=== PATIENT | male | born 1975 | race Caucasian/White ===

== ENCOUNTER 2017-06-13 03:50 | Emergency (ER) | payer BC, OTHER ==
[2017-06-13] MEDS ORDERED: FEVERALL 650 MG PR ONE (03:53)
[2017-06-13] MEDS ORDERED: XYLOCAINE 2% HCL 20 ML MDV ONE ×2 (04:11→04:13)
--- NOTE | 2017-06-13 04:17 | ERPHSYRPT ---
- History of Present Illness Time Seen by Provider: 06/13/17 04:09 Source: patient Physician History: PATIENT SUSTAINED CRUSH INJURY AT WORK, MIDDLE FINGER CAUGHT BETWEEN 2 PIECES OF METAL. HAS PAINFUL LACERATION OVER END OF FINGER. HAS LIMITED RANGE OF MOTION OVER END OF FINGER. Occurred: just prior to arrival Method of Injury: other (CRUSH INJURY BETWEEN 2 PIECES OF METAL) Quality: constant Severity of Pain-Max: moderate Severity of Pain-Current: moderate Extremities Pain Location: 3rd finger: left Modifying Factors: Improves With: movement Associated Symptoms: none Allergies/Adverse Reactions: Penicillins Allergy (Severe, Verified 06/13/17 04:16) Hives Home Medications: Tramadol HCl 50 mg [Ultram 50 mg] 50 mg PO Q6H PRN PRN 06/13/17 [History] Hx Tetanus, Diphtheria Vaccination/Date Given: No - Review of Systems Musculoskeletal: Deformity, Injury, Joint Pain - Past Medical History Pertinent Past Medical History: Yes Neurological History: No Pertinent History ENT History: No Pertinent History Cardiac History: No Pertinent History Respiratory History: No Pertinent History Endocrine Medical History: No Pertinent History Musculoskeletal History: Fractures GI Medical History: Hernia, Polyps History: No Pertinent History Psycho-Social History: No Pertinent History Male Reproductive Disorders: No Pertinent History Other Medical History: C-SPINE FX, KNEE INJURIES - Past Surgical History Past Surgical History: Yes Neuro Surgical History: No Pertinent History Cardiac: No Pertinent History Respiratory: No Pertinent History Gastrointestinal: Appendectomy, Hernia Repair Genitourinary: No Pertinent History Musculoskeletal: Orthopedic Surgery Male Surgical History: No Pertinent History Other Surgical History: left leg surgery - Social History Smoking Status: Former smoker Exposure to second hand smoke: No Drug Use: none - Nursing Vital Signs Nursing Vital Signs: Initial Vital Signs Temperature 97.9 F 06/13/17 03:57 Pulse Rate 60 06/13/17 03:57 Respiratory Rate 18 06/13/17 03:57 Blood Pressure 150/95 06/13/17 03:57 O2 Sat by Pulse Oximetry 95 06/13/17 03:57 Pain Scale Pain Intensity 8 - Physical Exam General Appearance: alert Hand Exam: laceration (THERE IS AN L-SHAPED LACERATION 2.5CM DORSUM LEFT MIDDLE FINGER, DISTAL PHALANGX ADJACENT TO NAIL FOLD RADIAL ANTERIOR ASPECT WITH AN AVULSION PROXIMAL TO ANTERIORN NAIL FOLD, DISTAL PHALANGX VISUALIZED, ABSENT EXTENSION DIP JOINT, NO JOINT LAXITY MCP, PIP, DIP JOINT) Mental Status Exam: alert, oriented x 3 Procedures - Laceration/Wound Repair Left Finger Wound Location: Left (MIDDLE FINGER) Wound Length (cm): 2.3 Wound's Depth, Shape: irregular, flap (L-SHAPED FLAP) Wound Explored: clean Irrigated: Yes Hibiclens Prep: Yes Anesthesia: digital block, 2% Lidocaine Volume Anesthetic (ccs): 4 Wound Debrided: minimal Wound Repaired With: sutures Suture Size/Type: 4-0 Number of Sutures: 10 Sterile Dressing Applied?: Yes Splint Applied?: Yes - Radiology Exams Left Hand X-ray Interpretation: Interpreted by me (COMMINUTED DISPLACED TUFF FRACTURE, OF LEFT MIDDLE FINGER) Ordered Tests: Active Orders 24 hr Category Date Time Status HAND (MINIMUM 3 VIEWS) Stat Exams 06/13/17 04:14 Ordered Medication Summary Discontinued Medications Generic Name Dose Route Start Last Admin Trade Name Freq PRN Reason Stop Dose Admin Acetaminophen 650 mg 06/13/17 03:53 Feverall 650 Mg MO 06/13/17 03:54 STAT ONE Bacitracin Confirm 06/13/17 05:00 Baciguent Packet Administered 06/13/17 05:01 Dose 1 gm .ROUTE .STK-MED ONE Diphtheria/Tetanus/Acell Pertussis Confirm 06/13/17 05:00 Adacel Vial Administered 06/13/17 05:01 Dose 0.5 ml IM .STK-MED ONE Lidocaine HCl Confirm 06/13/17 04:11 Xylocaine 2% Hcl 20 Ml Mdv Administered 06/13/17 04:12 Dose 1 ml .ROUTE .STK-MED ONE Lidocaine HCl Confirm 06/13/17 04:13 Xylocaine 2% Hcl 20 Ml Mdv Administered 06/13/17 04:14 Dose 4 ml .ROUTE .STK-MED ONE - Progress Progress Note: 06/13/17 05:27 KEFLEX 500MG ORALLY, T-DAP 0.5ML IM Discussed with : Other (DISCUSSED WITH DR WOLF AT 05 WILL EVALUATE IN OFFICE TODAY AT 8AM) - Departure Time of Disposition: 05:35 Departure Disposition: Home Clinical Impression: COMMINUTED FRACTURE LEFT MIDDLE FINGER, LACERATION LEFT MIDDLE FINGER Condition: Stable Critical Care Time: No Referrals: FERMIN JACOBS [Primary Care Provider] - Additional Instructions: CALL DR WOLF TODAY AT 8AM FOR OFFICE VISIT THIS MORNING. ANTIBIOTIC KEFLEX 500MG EVERY 6 HOURS FOR 10 DAYS. NORCO 10/325 EVERY 4 HOURS FOR PAIN DISCOMFORT. MAINTAIN TUBE DEMETRIUS DRESSINGS WITH SPLINT UNTIL EVALUATED BY DR WOLF.
[2017-06-13] MEDS ORDERED: BACIGUENT PACKET ONE (05:00)
[2017-06-13] MEDS ORDERED: Adacel Vial IM ONE (05:00)
[2017-06-13] MEDS ORDERED: Norco 10/325 MG Tablet PO ONE (05:30)
[2017-06-13] MEDS ORDERED: KEFLEX 500 MG ONE (05:34)
[2017-06-13] MEDS ORDERED: Norco 10/325 MG Tablet ONE (05:35)
[2017-06-13] MEDS ORDERED: KEFLEX 500 MG PO ONE (05:39)
[2017-06-13 05:52] VITALS: BP 137/78; PULSE 59; O2SAT 97
[2017-06-13] MEDS ORDERED: BACIGUENT PACKET TP ONE (05:55)
[2017-06-13] MEDS ORDERED: XYLOCAINE 2% HCL 20 ML MDV IJ ONE (06:00)
--- NOTE | 2017-06-13 09:08 | XRAY ---
Indication: Third finger crush injury. Comparison: None 3 views of the left hand demonstrates minimally displaced third tuft fracture with soft tissue swelling and punctate soft tissue foreign bodies. Additional 4 mm soft tissue foreign body adjacent to the fifth metacarpal. No other bony, articular, or soft tissue abnormalities.
== END 2017-06-13 05:51 | disposition home or self-care (01) ==
LOC: ED 03:50
PROC: 0HQGXZZ Repair Left Hand Skin, External Approach (ICD-10-PCS; principal; 2017-06-13)
DX: S62.603A Fracture of unspecified phalanx of left middle finger, initial encounter for closed fracture (principal); S61.213A Laceration without foreign body of left middle finger without damage to nail, initial encounter; W23.0XXA Caught, crushed, jammed, or pinched between moving objects, initial encounter
CPT/HCPCS: 12001; 73130; 90471; 90715; 99283; A9270-GY

== ENCOUNTER 2020-07-29 22:00 | Emergency (ER) | payer BC ==
[2020-07-29] MEDS ORDERED: TORAdol 30 mg Injection IM ONE (22:09)
[2020-07-29] MEDS ORDERED: TORAdol 30 mg Injection ONE (22:14)
--- NOTE | 2020-07-29 22:14 | ERPHSYRPT ---
- History of Present Illness Time Seen by Provider: 07/29/20 22:10 Source: patient Exam Limitations: no limitations Method of Injury: direct blow Occurred: just prior to arrival Quality: constant, sharpness, stabbing, throbbing Severity of Pain-Max: moderate Severity of Pain-Current: moderate Lower Extremities Pain: foot: right Modifying Factors: Improves With: cold therapy, immobilization, movement Associated Symptoms: other (great toe subungual heme) Allergies/Adverse Reactions: Penicillins Allergy (Severe, Verified 07/29/20 22:23) Hives Home Medications: Tramadol HCl 50 mg [Ultram 50 mg] 50 mg PO Q6H PRN PRN 06/13/17 [History] Hx Tetanus, Diphtheria Vaccination/Date Given: No Hx Influenza Vaccination/Date Given: No Hx Pneumococcal Vaccination/Date Given: No - Review of Systems Constitutional: No Fever, No Chills Eyes: No Symptoms Ears, Nose, & Throat: No Symptoms Respiratory: No Cough, No Dyspnea Cardiac: No Chest Pain, No Edema, No Syncope Abdominal/Gastrointestinal: No Abdominal Pain, No Nausea, No Vomiting, No Diarrhea Genitourinary Symptoms: No Dysuria Musculoskeletal: Injury, No Back Pain, No Neck Pain Skin: No Symptoms, No Rash Neurological: No Dizziness, No Focal Weakness, No Sensory Changes Psychological: No Symptoms Endocrine: No Symptoms All Other Systems: Reviewed and Negative - Past Medical History Pertinent Past Medical History: Yes Neurological History: No Pertinent History ENT History: No Pertinent History Cardiac History: No Pertinent History Respiratory History: No Pertinent History Endocrine Medical History: No Pertinent History Musculoskeletal History: Fractures GI Medical History: Hernia, Polyps History: No Pertinent History Psycho-Social History: No Pertinent History Male Reproductive Disorders: No Pertinent History Other Medical History: C-SPINE FX, KNEE INJURIES - Past Surgical History Past Surgical History: Yes Neuro Surgical History: No Pertinent History Cardiac: No Pertinent History Respiratory: No Pertinent History Gastrointestinal: Appendectomy, Hernia Repair Genitourinary: No Pertinent History Musculoskeletal: Orthopedic Surgery Male Surgical History: No Pertinent History Other Surgical History: left leg surgery - Social History Smoking Status: Former smoker Exposure to second hand smoke: No Drug Use: none Patient Lives Alone: No - Nursing Vital Signs Nursing Vital Signs: Initial Vital Signs Temperature 98.1 F 07/29/20 22:06 Pulse Rate 77 07/29/20 22:06 Respiratory Rate 16 07/29/20 22:06 Blood Pressure 144/90 07/29/20 22:06 O2 Sat by Pulse Oximetry 98 07/29/20 22:06 Pain Scale Pain Intensity 10 - Physical Exam General Appearance: no apparent distress, alert Eyes, Ears, Nose, Throat Exam: moist mucous membranes Neck Exam: non-tender, supple Cardiovascular/Respiratory Exam: chest non-tender, normal breath sounds, regular rate/rhythm, no respiratory distress Gastrointestinal/Abdominal Exam: non-tender, guarding Back Exam: normal inspection, No vertebral tenderness Hips Exam: bilateral: non-tender, normal inspection, normal range of motion, no evidence of injury Legs Exam: bilateral leg: non-tender, normal inspection, normal range of motion, no evidence of injury Knees Exam: bilateral knee: non-tender, normal inspection, normal range of motion, no evidence of injury Ankle Exam: bilateral ankle: non-tender, normal inspection, normal range of motion, no evidence of injury Foot Exam: right foot: bone tenderness, nail injury, pain, soft tissue tenderness, swelling, left foot: non-tender, normal inspection, normal range of motion, no evidence of injury DTR - Lower Extremities Exam: knee (R): 2+, knee (L): 2+, ankle (R): 2+, ankle (L): 2+ Neuro/Tendon Exam: normal sensation, normal motor functions, normal tendon functions, no evidence tendon injury Mental Status Exam: alert, oriented x 3, cooperative Skin Exam: normal color, warm, dry Procedures - Splinting Location of Splint: Right, Foot Type of Splint: Walking Boot/Shoe Splint Applied By: ED Nurse Pre-Proc Neuro Vasc Exam: normal Post-Proc Neuro Vasc Exam: neurovascular intact, unchanged from pre-exam - Nail Trephination Nail Trephination Location: right great toe Method of Drainage: 18 gauge needle Sterile Dressing Applied: Yes Finger Splint: No Progress: pt had immediate relief of pain . - Course Nursing assessment & vital signs reviewed: Yes - Radiology Exams Right Foot X-ray Interpretation: Reviewed by me, Other (no obvious fracture) Ordered Tests: Active Orders 24 hr Category Date Time Status Cold Application STAT Care 07/29/20 22:08 Active FOOT (MINIMUM 3 VIEWS) Stat Exams 07/29/20 22:09 Ordered Medication Summary Discontinued Medications Generic Name Dose Route Start Last Admin Trade Name Freq PRN Reason Stop Dose Admin Ketorolac Tromethamine 60 mg 07/29/20 22:09 07/29/20 22:18 Toradol 30 Mg Injection IM 07/29/20 22:10 60 mg STAT ONE Administration Ketorolac Tromethamine Confirm 07/29/20 22:14 Toradol 30 Mg Injection Administered 07/29/20 22:15 Dose 60 mg .ROUTE .STK-MED ONE - Progress Progress: improved, re-examined Counseled pt/family regarding: diagnosis, need for follow-up, rad results - Departure Departure Disposition: Home Clinical Impression: Subungual hematoma of great toe of right foot, Contusion of right foot including toes Condition: Good Critical Care Time: No Instructions: Contusion (DC), Bruising Under the Nail Additional Instructions: continue to soak right great toe in epsom salts daily until healed. nail will eventually grow out and fall off. final x-ray report Friday. use walking boot until foot feels better in next few days and followup with your dr. also return meantime if not improving. followup with your Dr. to recheck blood pressure.
[2020-07-29 22:55] VITALS: BP 132/85; PULSE 72; O2SAT 97
--- NOTE | 2020-07-30 08:56 | XRAY ---
Indication: Great toe crush injury. Comparison: None 3 nonweightbearing views right foot demonstrates small heel spurs. No other bony, articular, or soft tissue abnormalities.
== END 2020-07-29 23:04 | disposition home or self-care (01) ==
LOC: ED 22:00
DX: S90.211A Contusion of right great toe with damage to nail, initial encounter (principal)
CPT/HCPCS: 73630; 96372; 99284; J1885

== ENCOUNTER 2020-09-28 04:32 | Emergency (ER) | payer BC ==
[2020-09-28 04:47] VITALS: O2SAT 96
--- NOTE | 2020-09-28 05:16 | ERPHSYRPT ---
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 pt ambulatory with steady gait noted. respirations nonlabored with lungs cta. skin warm and dry. 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 Specifically, the left nare was lacerated through and through. Patient states that his last tetanus shot was within the last year. He did not lose consciousness. Timing/Duration: yesterday, hour(s) (6) Quality: painful Severity: mild Location: face Associated Symptoms: denies symptoms Allergies/Adverse Reactions: Penicillins Allergy (Severe, Verified 09/28/20 04:47) Hives Home Medications: Montelukast Sodium 10 mg [Singulair 10 MG] 10 mg PO DAILY PRN PRN 09/28/20 [History] Hx Tetanus, Diphtheria Vaccination/Date Given: Yes (jul 23) Hx Influenza Vaccination/Date Given: Yes Hx Pneumococcal Vaccination/Date Given: No Immunizations Up to Date: Yes Travel Risk - International Travel Have you traveled outside of the country in past 3 weeks: No - Coronavirus Screening Are you exhibiting any of the following symptoms?: No Close contact with a COVID-19 positive Pt in past 14-21 Days: No - Review of Systems Constitutional: No Symptoms Eyes: No Symptoms Ears, Nose, & Throat: Other (Left nare laceration) Respiratory: No Symptoms Cardiac: No Symptoms Abdominal/Gastrointestinal: No Symptoms Genitourinary Symptoms: No Symptoms Musculoskeletal: No Symptoms Skin: Other (Laceration left nare) Neurological: No Symptoms Psychological: No Symptoms Endocrine: No Symptoms Hematologic/Lymphatic: No Symptoms Immunological/Allergic: No Symptoms All Other Systems: Reviewed and Negative - Past Medical History Pertinent Past Medical History: Yes Neurological History: No Pertinent History ENT History: No Pertinent History Cardiac History: No Pertinent History Respiratory History: No Pertinent History Endocrine Medical History: No Pertinent History Musculoskeletal History: Fractures GI Medical History: Hernia, Polyps History: No Pertinent History Psycho-Social History: No Pertinent History Male Reproductive Disorders: No Pertinent History Other Medical History: C-SPINE FX, KNEE INJURIES - Past Surgical History Past Surgical History: Yes Neuro Surgical History: No Pertinent History Cardiac: No Pertinent History Respiratory: No Pertinent History Gastrointestinal: Appendectomy, Hernia Repair Genitourinary: No Pertinent History Musculoskeletal: Orthopedic Surgery Male Surgical History: No Pertinent History Other Surgical History: left leg surgery - Social History Smoking Status: Former smoker Exposure to second hand smoke: No Drug Use: none Patient Lives Alone: No - Nursing Vital Signs Nursing Vital Signs: Initial Vital Signs Temperature 97.8 F 09/28/20 04:37 Pulse Rate 54 L 09/28/20 04:37 Respiratory Rate 18 09/28/20 04:37 Blood Pressure 131/85 09/28/20 04:37 O2 Sat by Pulse Oximetry 96 09/28/20 04:37 Pain Scale Pain Intensity 2 - Physical Exam General Appearance: no apparent distress, alert Eye Exam: PERRL/EOMI, eyes nml inspection Ears, Nose, Throat Exam: other (Laceration left nare) Neck Exam: normal inspection, non-tender, supple, full range of motion Respiratory Exam: airway intact, No chest tenderness, No respiratory distress Gastrointestinal/Abdomen Exam: No tenderness Rectal Exam: not done Extremity Exam: normal inspection, normal range of motion, pelvis stable Neurologic Exam: alert, oriented x 3, cooperative, chorus master II-XII nml as tested, normal mood/affect, nml cerebellar function, nml station & gait, sensation nml Skin Exam: warm, dry, laceration (Left nare through and through. No foreign body. Mild occasional oozing from site.) Lymphatic Exam: No adenopathy SpO2 Interpretation: normal SpO2: 96 O2 Delivery: Room Air Procedures - Laceration/Wound Repair Left Face Wound Length (cm): 1 Wound's Depth, Shape: into subcut Wound Explored: clean (No foreign body noted. Examination was performed in a bloodless field to the base.) Irrigated: Yes Hibiclens Prep: Yes Anesthesia: local, 1% Lidocaine Volume Anesthetic (ccs): 2 Wound Debrided: minimal Wound Repaired With: sutures Suture Size/Type: 5-0, 4-0, prolene, vicryl Number of Sutures: 7 (2 Vicryl sutures for the mucosal lining and 5 external Prolene sutures) Layer Closure?: Yes Deep Layer Suture Size/Type: 4:0 (Vicryl) Number Deep Layer Sutures: 2 Progress: 09/28/20 05:53 The area of left nostril/nare was prepped and irrigated with Hibiclens solution. The wound was dried. Two 4-0 Vicryl stitches were placed to approximate the mucosal lining. Five 5-0 Prolene stitches were placed to approximate the external laceration. There were no complications the patient tolerated procedure well. The area was cleaned and dried and bacitracin ointment was applied. - Course Nursing assessment & vital signs reviewed: Yes - Progress Progress: improved Counseled pt/family regarding: diagnosis, need for follow-up - Departure Departure Disposition: Home Clinical Impression: Nasal laceration Condition: Stable Critical Care Time: No Referrals: DOCTOR,NO FAMILY [Primary Care Provider] - Additional Instructions: Keep site clean and dry for 24 hours. After 24 hours, may wash the site with soap and water. Blot dry use a hairdryer to dry the site. After each washing apply a thin layer of antibiotic ointment. External suture removal in 5 to 7 days. The inner nostril sutures will remain in place until they fall out on their own. Use Tylenol and or ibuprofen for pain control.
[2020-09-28 05:35] VITALS: BP 117/78; PULSE 56
[2020-09-28] MEDS ORDERED: BACIGUENT PACKET TP ONE (05:58)
[2020-09-28] MEDS ORDERED: BACIGUENT PACKET ONE (06:01)
[2020-09-28] MEDS ORDERED: XYLOCAINE 1% HCL 20 ML MDV IJ ONE (06:02)
== END 2020-09-28 06:04 | disposition home or self-care (01) ==
LOC: ED 04:32
DX: S01.21XA Laceration without foreign body of nose, initial encounter (principal); W45.8XXA Other foreign body or object entering through skin, initial encounter; W29.8XXA Contact with other powered hand tools and household machinery, initial encounter
CPT/HCPCS: 12011; 96372; 99284; A9270-GY